=== PATIENT | female | born 1940 | race Caucasian/White ===

== ENCOUNTER 2023-04-27 07:46 | Day surgery (SDC) | payer OTHER, BC ==
[2023-04-25 15:57] VITALS: BMI 24.2
[2023-04-27 10:22] VITALS: BP 135/56; PULSE 80; RESP 19; TEMP 98.2
== END 2023-04-27 10:15 | disposition home or self-care (01) ==
LOC: FASU-ENDO 07:46
PROVIDERS: ATTEND Internal Medicine Gastroenterology
PROC: 0DJD8ZZ Inspection of Lower Intestinal Tract, Via Natural or Artificial Opening Endoscopic (ICD-10-PCS; principal; 2023-04-27 09:27)
DX: K57.30 Diverticulosis of large intestine without perforation or abscess without bleeding (principal); R19.5 Other fecal abnormalities; R19.4 Change in bowel habit